=== PATIENT | male | born 1940 | race Caucasian/White ===

== ENCOUNTER 2018-02-26 15:19 | Inpatient (IN) | payer MEDICARE, BC ==
[~2018-02-26] VITALS: Ht 180.3 cm; Wt 108.0 kg
[2018-02-26 18:37] VITALS: BP 131/71; PULSE 69; RESP 20; TEMP 97.9; O2SAT 98
[2018-02-26 20:00] VITALS: BP 127/71; PULSE 66; RESP 18; TEMP 97.5; O2SAT 96
[2018-02-26] MEDS ORDERED: VITACAP7 PO (20:11)
[2018-02-26] MEDS ORDERED: NITR0.4S SL (20:25)
[2018-02-26] MEDS ORDERED: SOTA160T PO (20:25)
[2018-02-26] MEDS ORDERED: CALC1TAB12 PO (20:25)
[2018-02-26] MEDS ORDERED: TRIL135C PO ×2 (20:25→20:43)
[2018-02-26] MEDS ORDERED: FLUT1INH INH (20:25)
[2018-02-26] MEDS ORDERED: AMLO10TA2 PO (20:25)
[2018-02-26] MEDS ORDERED: CYMB60CA PO ×2 (20:25→20:40)
[2018-02-26] MEDS ORDERED: MELA5 PO (20:25)
[2018-02-26] MEDS ORDERED: METF850T PO (20:25)
[2018-02-26] MEDS ORDERED: ALBU0.08 NEB (20:25)
[2018-02-26] MEDS ORDERED: LIPI80TA PO (20:25)
[2018-02-26] MEDS ORDERED: CARV25TA PO (20:25)
[2018-02-26] MEDS ORDERED: PANT40TA3 PO (20:25)
[2018-02-26] MEDS ORDERED: DICL1PAT (20:25)
[2018-02-26] MEDS ORDERED: POTA10TA2 PO (20:28)
[2018-02-26] MEDS ORDERED: APIX5TAB PO (20:28)
[2018-02-26] MEDS ORDERED: ASPI-516 CHEW (20:28)
[2018-02-26] MEDS ORDERED: FURO40TA PO (20:28)
[2018-02-26] MEDS ORDERED: IRBE300T11 PO (20:28)
[2018-02-26] MEDS ORDERED: VANCOMYCIN 1,000 MG/NS 250 ML IV ONE ×2 (21:00)
[2018-02-26] MEDS ORDERED: OMEG100046 PO (21:42)
[2018-02-26] MEDS ORDERED: FOLI800T PO (21:42)
[2018-02-26] MEDS ORDERED: MIRA3350 PO (21:42)
[2018-02-26] MEDS ORDERED: VITA1000 PO (21:42)
[2018-02-26] MEDS: ATORVASTATIN 80 MG TAB PO SCH (22:15)
[2018-02-26] MEDS: APIXABAN 5 MG TABLET PO SCH (22:15)
[2018-02-26] MEDS ORDERED: NITROGLYCERIN 0.4 MG SL 25 TABS/BTL SL PRN (22:15)
[2018-02-26] MEDS: SOTALOL HCL 80 MG TAB PO SCH (22:15)
[2018-02-26] MEDS: CARVEDILOL 12.5 MG TAB PO SCH (22:15)
[2018-02-26] MEDS: MELATONIN 5 MG TAB PO SCH (22:15)
[2018-02-26 22:41] LABS: AUTOMATED NEUTROPHIL # 6.4 TH/MM3 (1.8-7.7); BASOPHIL # 0.1 TH/MM3 (0-0.2); BASOPHIL % 0.8 % (0.0-2.0); EOSINOPHIL # 0.4 TH/MM3 (0-0.4); EOSINOPHIL % 4.1 % (0.0-4.0); HEMATOCRIT 41.7 % (39.0-51.0); LYMPH % 12.2 % (9.0-44.0); LYMPHOCYTE # 1.1 TH/MM3 (1.0-4.8); MEAN CELL VOLUME 83.5 FL (80.0-100.0); MEAN CORPUSCULAR HEMOGLOBIN 28.1 PG (27.0-34.0); MEAN CORPUSCULAR HGB CONC 33.6 % (32.0-36.0); MONO % 9.9 % (0.0-8.0); MONOCYTE # 0.9 TH/MM3 (0-0.9); PLATELET COUNT 207 TH/MM3 (150-450); RED BLOOD COUNT 4.99 MIL/MM3 (4.50-5.90); RED CELL DISTRIBUTION WIDTH 15.3 % (11.6-17.2); WHITE BLOOD COUNT 8.8 TH/MM3 (4.0-11.0)
[2018-02-26 23:03] LABS: ALBUMIN 3.6 GM/DL (3.4-5.0); AST (GOT) 20 U/L (15-37); BICARBONATE 25.5 MEQ/L (21.0-32.0); BLOOD UREA NITROGEN 21 MG/DL (7-18); CALCIUM 8.8 MG/DL (8.5-10.1); CHLORIDE 108 MEQ/L (98-107); CREATININE 1.06 MG/DL (0.60-1.30); GLOMERULAR FILTRATION RATE 68 ML/MIN (>89); GLUCOSE,RANDOM 123 MG/DL (74-106); SODIUM (NA) 143 MEQ/L (136-145)
[2018-02-26 23:04] LABS: ALT (GPT) 18 U/L (12-78)
[2018-02-26 23:06] LABS: ALKALINE PHOSPHATASE 38 U/L (45-117); TOTAL BILIRUBIN ADULT 1.1 MG/DL (0.2-1.0); TOTAL PROTEIN 7.4 GM/DL (6.4-8.2)
[2018-02-27 00:11] VITALS: BP 113/78; PULSE 68; RESP 18; TEMP 98.7; O2SAT 96
[2018-02-27 04:00] VITALS: BP 133/63; PULSE 77; RESP 18; TEMP 97.7; O2SAT 96
[2018-02-27 08:00] VITALS: BP 143/72; PULSE 78; RESP 18; TEMP 98.2; O2SAT 95
[2018-02-27] MEDS: FENOFIBRATE 145 MG TAB PO SCH (08:15)
[2018-02-27] MEDS: metFORMIN HCL 850 MG TAB PO SCH ×2 (08:15→17:58)
[2018-02-27] MEDS: CARVEDILOL 12.5 MG TAB PO SCH ×2 (08:18→21:14)
[2018-02-27] MEDS: SOTALOL HCL 80 MG TAB PO SCH ×2 (08:18→21:12)
[2018-02-27] MEDS: LOSARTAN 50 MG TAB PO SCH (08:19)
[2018-02-27] MEDS: ASPIRIN 81 MG CHEW TAB CHEW SCH (08:19)
[2018-02-27] MEDS: FUROSEMIDE 40 MG TAB PO SCH (08:20)
[2018-02-27] MEDS: POTASSIUM CHLORIDE 10 MEQ CONTROLLED RELEASE TAB PO SCH (08:20)
[2018-02-27] MEDS: APIXABAN 5 MG TABLET PO SCH ×2 (08:21→21:13)
[2018-02-27] MEDS: PANTOPRAZOLE SOD 40 MG DELAYED RELEASE TAB PO SCH (08:21)
[2018-02-27] MEDS: POLYETHYLENE GLYCOL 17 GM PKG PO SCH (08:23)
--- NOTE | 2018-02-27 08:58 | HHI.PR ---
Subjective Remarks Patient received first dose of vancomycin late last night. Left leg dressing fell off in the middle of the night. Was replaced this morning. Denies pain in the left lower extremity. Denies any chest pain, shortness of breath, nausea or vomiting. Ambulating in the room with his cane. Current Medications Medications (Trade) Dose Ordered Sig/Kely Route Start Time Stop Time Status Last Admin (Norvasc) 10 mg DAILY PO 02/27/18 09:00 (Eliquis) 5 mg BID PO 02/26/18 22:15 02/27/18 08:21 (Aspirin Chew) 81 mg DAILY CHEW 02/27/18 09:00 02/27/18 08:19 (Lipitor) 80 mg HS PO 02/26/18 22:15 (Coreg) 25 mg BID PO 02/26/18 22:15 02/27/18 08:18 (Cymbalta Dr) 60 mg DAILY PO 02/27/18 09:00 (Breo Ellipta 100-25 Inh) 1 puff DAILY INH 02/27/18 09:00 (Lasix) 40 mg DAILY PO 02/27/18 09:00 02/27/18 08:20 (Melatonin) 10 mg HS PO 02/26/18 22:15 (Glucophage) 850 mg BIDPC PO 02/27/18 09:00 02/27/18 08:15 (Nitrostat Sl) 0.4 mg STAT PRN SL 02/26/18 22:15 (Protonix) 40 mg DAILY PO 02/27/18 09:00 02/27/18 08:21 (Miralax) 17 gm DAILY PO 02/27/18 09:00 02/27/18 08:23 (KCl) 10 meq DAILY PO 02/27/18 09:00 02/27/18 08:20 (Tricor) 145 mg DAILY PO 02/27/18 09:00 02/27/18 08:15 (Cozaar) 100 mg DAILY PO 02/27/18 09:00 02/27/18 08:19 (Betapace) 160 mg BID PO 02/26/18 22:15 02/27/18 08:18 Objective Vital Signs Date Time Temp Pulse Resp B/P (MAP) Pulse Ox O2 Delivery O2 Flow Rate FiO2 02/27/18 04:00 97.7 77 18 133/63 (86) 96 02/27/18 00:11 98.7 68 18 113/78 (90) 96 02/26/18 20:00 97.5 66 18 127/71 (89) 96 02/26/18 18:37 97.9 69 20 131/71 (91) 98 I/O 02/26/18 02/26/18 02/26/18 02/27/18 02/27/18 02/27/18 07:00 15:00 23:00 07:00 15:00 23:00 Intake Total 250 ml Balance 250 ml Intake IV Total 250 ml # Voids 2 3 Cardiovascular: IRRR Lungs: Clear to auscultation with mildly reduced air exchange Abdomen: Obese, soft and nontender. Further palpation is not possible due to obesity. Bowel sounds present Left lower extremity: 2+ edema of the lower leg with diffuse pale erythema anteriorly. Proximal lateral lower leg reveals a 1.5 x 3.5 cm stage II open wound. There is a 3 x 6 cm area of surrounding desquamation and deep erythema. Right lower extremity reveals no edema. No calf tenderness or Homans sign bilaterally Result Diagram: 02/26/18204602/26/182046 Assessment and Plan Problem List: (1) Cellulitis of left lower limb ICD Codes: L03.116 - Cellulitis of left lower limb Status: Acute Plan: The patient failed outpatient treatment with oral antibiotics and local wound care. He has received his first dose of vancomycin. Awaiting infectious disease consult for assistance with choice of antibiotics. Continue with local wound care. (2) ASHD (arteriosclerotic heart disease) ICD Codes: I25.10 - Atherosclerotic heart disease of [place] coronary artery without angina pectoris Status: Chronic Plan: Patient continues with current medication. He is asymptomatic for any recurrent coronary ischemia (3) History of ventricular tachycardia ICD Codes: Z86.79 - Personal history of other diseases of the circulatory system Status: Chronic Plan: The patient has an AICD in place. No evidence of any recurrent ventricular tachycardia. (4) Atrial fibrillation ICD Codes: I48.91 - Unspecified atrial fibrillation Plan: Ventricular rate is well controlled. He continues to take Eliquis for prophylaxis against embolism. No bleeding complications from the Eliquis. (5) Type 2 diabetes mellitus ICD Codes: E11.9 - Type 2 diabetes mellitus without complications Status: Chronic Plan: Continue with Metformin. Patient has had good glycemic control. He does have peripheral neuropathy and ambulates with a cane. (6) Hyperlipidemia ICD Codes: E78.5 - Hyperlipidemia, unspecified Status: Chronic Plan: Continue with current medication. (7) COPD (chronic obstructive pulmonary disease) ICD Codes: J44.9 - Chronic obstructive pulmonary disease, unspecified Status: Chronic Plan: The patient continues with Breo ellipta. Respiratory status stable (8) Hypertension ICD Codes: I10 - Essential (primary) hypertension Status: Chronic Plan: Blood pressure under adequate control with current medications (9) Anxiety ICD Codes: F41.9 - Anxiety disorder, unspecified Status: Chronic Plan: The patient has been on duloxetine for several years with good control of his anxiety. Will follow. Problem Qualifiers (1) Atrial fibrillation: Qualified Codes: I48.2 - Chronic atrial fibrillation (2) Type 2 diabetes mellitus: Qualified Codes: E11.42 - Type 2 diabetes mellitus with diabetic polyneuropathy (3) Hyperlipidemia: Qualified Codes: E78.2 - Mixed hyperlipidemia (4) COPD (chronic obstructive pulmonary disease): Qualified Codes: J44.9 - Chronic obstructive pulmonary disease, unspecified (5) Hypertension: Qualified Codes: I10 - Essential (primary) hypertension Anthony Fenton MD Feb 27, 2018 08:58
[2018-02-27] MEDS ORDERED: DULoxetine HCl DR 60 MG CAP PO SCH (09:00)
[2018-02-27] MEDS ORDERED: Vancomycin Consult Pharmacy 1 EA OTHER SCH (09:00)
[2018-02-27] MEDS: TIOTROPIUM BROMIDE 18 MCG INH INH SCH (09:45)
--- NOTE | 2018-02-27 10:25 | MH ---
cc: Anthony Fenton MD DATE OF ADMISSION: 02/26/2018 ADMITTING DIAGNOSIS: Open wound with cellulitis, left lower extremity. HISTORY OF PRESENT ILLNESS: This 78-year-old white male well known to the undersigned physician. He presented to the undersigned physician's office approximately 2 weeks prior to admission with a wound on the left proximal lateral lower leg. He states that it occurred when he struck his leg on his walker at home, he initially just applied some gauze and did not perform any regular wound care. He had been to his oracle drm consultant for foot care and the oracle drm consultant noticed swelling in the left lower extremity. When evaluated further, this wound was discovered and the oracle drm consultant was very concerned and asked that I see the patient and possibly refer this patient for wound care. The patient has been receiving wound care in the undersigned physician's office while awaiting an appointment with the [facility], which was scheduled for tomorrow. The patient has been receiving doxycycline 100 mg twice a day for antibiotics and has been treated with wound care using alginate and a sterile dressing, which has been changed every 3 days. Initially, there was improvement in the wound, but then 3 days prior to admission, the patient was seen in the undersigned physician's office and there was increasing erythema around the wound. There was concern for worsening infection. The patient was prescribed Zyvox 600 mg twice daily, the prescription for which was sent to the patient's local pharmacy; however, the pharmacy reported to the patient that they were unable to obtain the antibiotic due to national back order and therefore they did not fill the prescription nor did they contact the undersigned physician. On the day of admission, the patient presented to the undersigned physician's office. The wound was noted to have quite a bit of serosanguineous discharge and a foul odor. There was increasing erythema extending down the left lower leg and there was marked edema of the left lower extremity. It was felt that the patient had a worsening infection which had failed outpatient treatment and he would require IV antibiotics through inpatient treatment. PAST MEDICAL HISTORY: Significant for osteopenia, diverticulosis, atherosclerotic heart disease, status post coronary stent placement, history of ventricular tachycardia with cardiac arrest in 2011. He is status post AICD placement. He has a cardiomyopathy with a left ventricular ejection fraction of 37%. He has mild left carotid stenosis, hyperlipidemia, lumbar disk disease, GERD, COPD, anxiety disorder, hypertension, allergic rhinitis, history of colonic polyps based on a colonoscopy in 2017 and he has peripheral neuropathy. The patient also type 2 diabetes, which is treated with oral medication. He has chronic atrial fibrillation, which was diagnosed in 2018. ALLERGIES: HE HAS NO KNOWN DRUG ALLERGIES. PAST SURGICAL HISTORY: Positive for AICD pacemaker placement in 2011, coronary stent placement and bilateral cataract removal with lens implants. CURRENT MEDICATIONS: 1. B complex 1 tablet daily. 2. Calcium with vitamin D 500 mg twice a day. 3. Fish oil 1000 mg twice daily. 4. Pantoprazole 40 mg daily. 5. Vitamin D 5000 international units daily. 6. Amlodipine 10 mg daily. 7. Carvedilol 25 mg twice daily. 8. Duloxetine 60 mg daily. 9. Lipitor 80 mg daily. 10. Sotalol 160 mg twice daily. 11. Trilipix 135 mg daily. 12. Flector patch 1.3% apply 1 patch to the skin twice a day. 13. Nitroglycerin 0.4 mg 1 tablet under the tongue every 5 minutes x 3 p.r.n. chest pain. 14. Melatonin 5 mg 2 tablets at bedtime as needed for insomnia. 15. Folic acid 1 mg daily. 16. Albuterol. 17. Ipratropium nebulizer solution 1 unit dose 3 times a day as needed. 18. Breo Ellipta 100/25 mcg per inhalation 1 inhalation daily, increase Ellipta 62.5 mcg per inhalation 1 inhalation daily. 19. Albuterol sulfate inhaler 2 puffs every 4 hours as needed for wheezing. 20. Metformin 850 mg twice daily. 21. Aspirin 81 mg daily. 22. Eliquis 5 mg twice daily. 23. MiraLax 17 gm in 8 ounces of liquid daily. 24. Furosemide 40 mg daily. 25. Potassium chloride ER 10 mEq daily. 26. Avapro 300 mg daily FAMILY HISTORY: Noncontributory. SOCIAL HISTORY: He is single. 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 He spends part of the year in [place] and part of the year in [place]. He smoked a pipe for many years, but quit in 1999. He does consume alcohol on a social basis. REVIEW OF SYSTEMS: Negative for any chest pain, shortness of breath at rest. He has chronic dyspnea on exertion. He has had no palpitations, lightheadedness, dizziness, nausea, vomiting, GERD symptoms, diarrhea, constipation, abdominal pain, melena, hematochezia, epistaxis, visual changes, lightheadedness, dizziness. He has chronic numbness in the lower extremities. He ambulates with a cane. The patient has had some urinary frequency and urgency, but no incontinence or dysuria. He denies any hematuria. The patient also denies any definite fever, chills or night sweats. PHYSICAL EXAM: VITAL SIGNS: The patient's blood pressure was 132/62 with a heart rate of 80, respirations were 16, temperature 98.1 degrees Fahrenheit, height 71 inches. GENERAL: This is a morbidly obese, elderly, white male, sitting on the exam table in no acute distress. HEENT: Pupils equal, round, reactive to light. Extraocular movements are intact. Sclerae are anicteric. Conjunctivae pink. Bilateral lens implants in place. Mouth and throat reveal moist mucous membranes. No erythema or exudates. Dentition is good. NECK: Supple without lymphadenopathy, JVD, bruits or thyromegaly. CARDIOVASCULAR: Shows an irregular rate and rhythm without murmur, rubs or gallops. LUNGS: Reveal Mildly diminished air exchange, but no wheezes, rhonchi or rales. ABDOMEN: Morbidly obese, soft, nontender. Bowel sounds present. Further palpation not possible due to the obesity. No CVAT. GENITOURINARY AND RECTAL: Deferred. EXTREMITIES: The right lower extremities reveal no edema, no calf tenderness. No Kathie's sign. There are 2+ distal pulses. Left lower extremity reveals 2+ edema of the lower leg and ankle. There is no calf tenderness or Kathie's sign. The proximal lateral lower leg reveals a V-shaped laceration measuring approximately 2.5 cm on each arm and the width is approximately 1.5 cm. There is some exudate present in the base of the wound. There is desquamation with marked erythema measuring 3 x 6 cm around the wound. There is pale erythema extending down the anterior leg to the distal lower leg. There are no other open areas. NEUROLOGIC: The patient is awake, alert, and oriented x 3. Speech intact. Cranial nerves intact. No short-term memory or cognitive deficits. Gait is flat footed with a short stride length utilizing a cane. LABORATORY DATA: CBC and CMP are pending at this time. IMPRESSION AND PLAN: 1. This 78-year-old white male presents with a worsening cellulitis of the left lower extremity due to an open wound. The patient has been on oral antibiotics and has failed the course, therefore, he would benefit from an inpatient treatment. He is at high risk for complications from his cellulitis due to his diabetes and neuropathy as well as his other multiple comorbidities. I am going to admit him to a medical surgical bed. Place him on IV vancomycin initially. We will consult infectious disease for assistance with antibiotic choice. We will check baseline renal function and monitor renal function closely. I have asked pharmacy to assist with dosing of the vancomycin. We will continue with local wound care with alginate dressing changed every other day. We will have the patient elevate leg as much as possible. 2. History of atherosclerotic heart disease with history of ventricular tachycardia. The patient has been asymptomatic for any recurrent coronary ischemia or arrhythmia for years. He will continue with the usual medications. 3. Diabetes. The patient has had good glycemic control with metformin. We will continue with current medication. 4. Atrial fibrillation. The patient's ventricular rate is well controlled. Continue with Eliquis for prophylaxis against embolism. 5. History of anxiety disorder. Continue with Cymbalta. Symptoms under adequate control. 6. History of a cardiomyopathy. The patient has increasing edema in the left lower extremity due to this cellulitis. Otherwise, he appears to be compensated. Continue with current medication regimen. 7. Hyperlipidemia. Continue with Lipitor and Trilipix. Lipid levels were checked in the recent months and were within acceptable range. LFTs have also been within normal range. I have explained the plan of care with the patient who expressed understanding and agreement. Anthony Fenton MD JRM/FARHAD , 09:43 AM , 10:24 AM
[2018-02-27] MEDS: FLUTICASONE 100 MCG/VILANTEROL 25 MCG INHALER INH SCH (11:25)
[2018-02-27 12:00] VITALS: BP 137/68; PULSE 71; RESP 18; TEMP 98; O2SAT 98
--- NOTE | 2018-02-27 13:32 | PD.CONS ---
History of Present Illness Service Infectious Disease Consult Requested By Dr Mela Fenton Reason for Consult Evaluate patient with cellulitis and wound left leg Primary Care Physician Unknown Diagnoses: History of Present Illness Patient seen and examined. Records reviewed. Patient is a 78-year-old male, with history of diabetes, presented to the hospital for further evaluation of increased swelling, and worsening redness in his left lower extremity. About 2 weeks ago patient sustained a wound on his left leg after he fell while he was using his walker at home. Patient did not really do any significant wound care except put a gauze, and when he went to his regular appointment with the director of athletics, which was mostly for trimming of his toenails, he was noted to have the redness and the swelling so he was advised to go to his primary care doctor. He was put on wound care which was being changed every 3 days, and he was put on doxycycline. He was being seen regularly and his primary care physician has been doing the dressing changes in the office. About 4 days prior to admission he was seen in follow-up, and his antibiotic was changed to Zyvox. Patient apparently could not get the Zyvox from his pharmacy because he was backorder, and he finished the remaining doxycycline that he has. On the day that he was supposed to follow-up which would be the day of admission, the patient noted that he has more redness in his left leg. His physician also noted some smell, and it was decided to bring him to the hospital for further evaluation and treatment. He denies any fever chills or sweats. He has not had any respiratory complaints, GI or any urinary complaints. Since admission, patient has not been febrile. His WBC is normal. He has been getting IV vancomycin. Infectious disease consultation has been requested to evaluate the patient. Review of Systems Constitutional: DENIES: Fever, Chills, Night Sweats Eyes: DENIES: Eye pain Ears, nose, mouth, throat: DENIES: Oral lesions, Throat pain, Ear Pain, Sinus Pain Respiratory: DENIES: Cough, Sputum production, Shortness of breath Cardiovascular: COMPLAINS OF: Lower Extremity Edema, DENIES: Chest pain, Syncope Gastrointestinal: DENIES: Abdominal pain, Diarrhea, Nausea, Vomiting, Difficulty Swallowing Genitourinary: DENIES: Urgency, Dysuria, Nocturia Musculoskeletal: COMPLAINS OF: Back pain Integumentary: DENIES: Rash Hematologic/lymphatic: DENIES: Lymphadenopathy Neurologic: COMPLAINS OF: Paresthesias, DENIES: Localized weakness Psychiatric: DENIES: Hallucinations Past Family Social History Allergies: Coded Allergies: No Known Allergies (Unverified , 02/26/18) Past Medical History Diabetes Atherosclerotic heart disease, CAD Cardiomyopathy Diverticulosis Hyperlipidemia Lumbar disc disease GERD COPD Anxiety Hypertension Allergic rhinitis Colon polyps Chronic A. fib Ventricular tachycardia with cardiac arrest 2011 Left carotid stenosis Neuropathy Past Surgical History AICD placement Previous colonoscopy Active Ordered Medications Current Medications Medications (Trade) Dose Ordered Sig/Kley Route Start Time Stop Time Status Last Admin (Eliquis) 5 mg BID PO 02/26/18 22:15 02/27/18 08:21 (Aspirin Chew) 81 mg DAILY CHEW 02/27/18 09:00 02/27/18 08:19 (Lipitor) 80 mg HS PO 02/26/18 22:15 (Coreg) 25 mg BID PO 02/26/18 22:15 02/27/18 08:18 (Breo Ellipta 100-25 Inh) 1 puff DAILY INH 02/27/18 09:00 02/27/18 11:25 (Lasix) 40 mg DAILY PO 02/27/18 09:00 02/27/18 08:20 (Melatonin) 10 mg HS PO 02/26/18 22:15 (Glucophage) 850 mg BIDPC PO 02/27/18 09:00 02/27/18 08:15 (Nitrostat Sl) 0.4 mg STAT PRN SL 02/26/18 22:15 (Protonix) 40 mg DAILY PO 02/27/18 09:00 02/27/18 08:21 (Miralax) 17 gm DAILY PO 02/27/18 09:00 02/27/18 08:23 (KCl) 10 meq DAILY PO 02/27/18 09:00 02/27/18 08:20 (Tricor) 145 mg DAILY PO 02/27/18 09:00 02/27/18 08:15 (Cozaar) 100 mg DAILY PO 02/27/18 09:00 02/27/18 08:19 (Betapace) 160 mg BID PO 02/26/18 22:15 02/27/18 08:18 Pharmacy Profile Note 0 ml @ 0 mls/hr UNSCH OTHER 02/27/18 09:00 (Cymbalta Dr) 60 mg HS PO 02/27/18 21:00 (Norvasc) 10 mg HS PO 02/27/18 21:00 (Spiriva Inh) 18 mcg DAILY INH 02/27/18 09:45 Vancomycin HCl 2000 mg/Sodium Chloride 520 ml @ 250 mls/hr Q24H IV 02/27/18 15:00 Miscellaneous Information SPECIFIC LAB TO BE [facility]... 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 SKIN: Warm and dry. No generalized rash, no ecchymoses and no evidence of embolic lesions. HEAD: Atraumatic. Normocephalic. No temporal wasting, or tenderness. EYES: [place] conjunctiva. No petechia or hemorrhage. Pupils equal, round and reactive to light. Extraocular movements full and intact. No scleral icterus. No injection or drainage. EARS, NOSE AND THROAT: Nose without bleeding or purulent nasal discharge. No sinus tenderness. Mucous membranes pink and moist. No oral lesions noted. No exudate. No oral thrush. NECK: Trachea midline. Supple and not tender, no meningeal signs CARDIOVASCULAR: Regular rate and rhythm. No murmurs, rubs or gallops heard RESPIRATORY: Clear to auscultation. Breath sounds equal bilaterally. No rales , wheezing or rhonchi ABDOMEN: Soft, non-tender, nondistended. Bowel sounds present and normoactive. No guarding. No rebound. No organomegaly. EXTREMITIES: No clubbing, cyanosis. His LLE is larger compared to his RLE. There is a wound in lateral aspect of his L leg, proximally that is curved, with some yellow exudate at the base. There is periwound erythema as well as ecchymosis. There is dependent erythema whole L leg - resolves when I elevate his LLE. No calf tenderness. Well perfused and warm. NEUROLOGICAL: Awake and alert. Cranial nerves grossly intact. Motor grossly within normal limits. PSYCHIATRIC: Normal affect, calm and cooperative. LINE: No evidence of infection Laboratory Laboratory Tests Test 02/26/18 20:47 White Blood Count 8.8 Red Blood Count 4.99 Hemoglobin 14.0 Hematocrit 41.7 Mean Corpuscular Volume 83.5 Mean Corpuscular Hemoglobin 28.1 Mean Corpuscular Hemoglobin Concent 33.6 Red Cell Distribution Width 15.3 Platelet Count 207 Mean Platelet Volume 9.0 Neutrophils (%) (Auto) 73.0 Lymphocytes (%) (Auto) 12.2 Monocytes (%) (Auto) 9.9 Eosinophils (%) (Auto) 4.1 Basophils (%) (Auto) 0.8 Neutrophils # (Auto) 6.4 Lymphocytes # (Auto) 1.1 Monocytes # (Auto) 0.9 Eosinophils # (Auto) 0.4 Basophils # (Auto) 0.1 CBC Comment DIFF FINAL Differential Comment Blood Urea Nitrogen 21 Creatinine 1.06 Random Glucose 123 Total Protein 7.4 Albumin 3.6 Calcium Level 8.8 Alkaline Phosphatase 38 Aspartate Amino Transf (AST/SGOT) 20 Alanine Aminotransferase (ALT/SGPT) 18 Total Bilirubin 1.1 Sodium Level 143 Potassium Level 3.9 Chloride Level 108 Carbon Dioxide Level 25.5 Anion Gap 10 Estimat Glomerular Filtration Rate 68 Result Diagram: 02/26/18204602/26/182046 Assessment and Plan Assessment and Plan IMPRESSION Ulcer L leg with cellulitis Cellulitis LLE RECOMMENDATION Culture wound Edema control - leg elevation and try TRENT stocking Continue vancomycin for now Monitor progress I will follow along with you Thank you for this consultation Discussed Condition With Explained plan to the patient Kayla Morales MD Feb 27, 2018 13:32
[2018-02-27] MEDS: VANCOMYCIN INJ 2,000 MG in SODIUM CHLORID 0.9% 500 ML INJ 500 ML IV SCH (14:59)
[2018-02-27 16:00] VITALS: BP 146/81; PULSE 72; RESP 18; TEMP 98.6; O2SAT 97
[2018-02-27 20:00] VITALS: BP 135/63; PULSE 60; RESP 16; TEMP 98.3; O2SAT 100
[2018-02-27] MEDS: DULoxetine HCl DR 60 MG CAP PO SCH (21:12)
[2018-02-27] MEDS: ATORVASTATIN 80 MG TAB PO SCH (21:12)
[2018-02-27] MEDS ORDERED: VANCOMYCIN INJ 1,000 MG in SODIUM CHLOR 0.9% 250 ML INJ 250 ML IV SCH (22:00)
[2018-02-27] MEDS: MELATONIN 5 MG TAB PO SCH (22:18)
[2018-02-28] VITALS: BP 118/58; PULSE 76; RESP 16; RESP 18; TEMP 98.1; O2SAT 95
[2018-02-28 04:00] VITALS: BP 120/62; PULSE 80; RESP 16; TEMP 97.8; O2SAT 100
[2018-02-28 08:18] VITALS: BP 141/81; PULSE 80; RESP 20; TEMP 97.7; O2SAT 93
[2018-02-28] MEDS: POTASSIUM CHLORIDE 10 MEQ CONTROLLED RELEASE TAB PO SCH (08:50)
[2018-02-28] MEDS: PANTOPRAZOLE SOD 40 MG DELAYED RELEASE TAB PO SCH (08:50)
[2018-02-28] MEDS: LOSARTAN 50 MG TAB PO SCH (08:50)
[2018-02-28] MEDS: FUROSEMIDE 40 MG TAB PO SCH (08:50)
[2018-02-28] MEDS: FENOFIBRATE 145 MG TAB PO SCH (08:51)
[2018-02-28] MEDS: SOTALOL HCL 80 MG TAB PO SCH ×2 (08:51→22:02)
[2018-02-28] MEDS: CARVEDILOL 12.5 MG TAB PO SCH ×2 (08:51→22:02)
[2018-02-28] MEDS: ASPIRIN 81 MG CHEW TAB CHEW SCH (08:51)
[2018-02-28] MEDS: APIXABAN 5 MG TABLET PO SCH ×2 (08:51→22:02)
[2018-02-28] MEDS: POLYETHYLENE GLYCOL 17 GM PKG PO SCH (08:52)
[2018-02-28] MEDS: TIOTROPIUM BROMIDE 18 MCG INH INH SCH (08:53)
[2018-02-28] MEDS: FLUTICASONE 100 MCG/VILANTEROL 25 MCG INHALER INH SCH (08:54)
[2018-02-28] MEDS: metFORMIN HCL 850 MG TAB PO SCH ×2 (09:04→17:45)
[2018-02-28 09:09] LABS: AUTOMATED NEUTROPHIL # 3.6 TH/MM3 (1.8-7.7); BASOPHIL # 0.1 TH/MM3 (0-0.2); EOSINOPHIL # 0.2 TH/MM3 (0-0.4); HEMATOCRIT 36.9 % (39.0-51.0); HEMOGLOBIN 12.1 GM/DL (13.0-17.0); LYMPH % 17.7 % (9.0-44.0); LYMPHOCYTE # 0.9 TH/MM3 (1.0-4.8); MEAN CELL VOLUME 83.3 FL (80.0-100.0); MEAN CORPUSCULAR HEMOGLOBIN 27.4 PG (27.0-34.0); MEAN CORPUSCULAR HGB CONC 32.8 % (32.0-36.0); MEAN PLATELET VOLUME 8.7 FL (7.0-11.0); MONO % 11.1 % (0.0-8.0); MONOCYTE # 0.6 TH/MM3 (0-0.9); NEUT % 66.2 % (16.0-70.0); PLATELET COUNT 165 TH/MM3 (150-450); RED BLOOD COUNT 4.43 MIL/MM3 (4.50-5.90); RED CELL DISTRIBUTION WIDTH 15.1 % (11.6-17.2); WHITE BLOOD COUNT 5.4 TH/MM3 (4.0-11.0)
--- NOTE | 2018-02-28 09:15 | HHI.PR ---
Subjective Remarks Patient reports some mild discomfort in the left proximal lateral lower leg lateral to the wound. He is afebrile. He is ambulating around the room with his cane. He remains afebrile. Vital signs are within acceptable range. Appetite good. Current Medications Medications (Trade) Dose Ordered Sig/Kely Route Start Time Stop Time Status Last Admin (Eliquis) 5 mg BID PO 02/26/18 22:15 02/28/18 08:51 (Aspirin Chew) 81 mg DAILY CHEW 02/27/18 09:00 02/28/18 08:51 (Lipitor) 80 mg HS PO 02/26/18 22:15 02/27/18 21:12 (Coreg) 25 mg BID PO 02/26/18 22:15 02/28/18 08:51 (Breo Ellipta 100-25 Inh) 1 puff DAILY INH 02/27/18 09:00 02/28/18 08:54 (Lasix) 40 mg DAILY PO 02/27/18 09:00 02/28/18 08:50 (Melatonin) 10 mg HS PO 02/26/18 22:15 02/27/18 22:18 (Glucophage) 850 mg BIDPC PO 02/27/18 09:00 02/28/18 09:04 (Nitrostat Sl) 0.4 mg STAT PRN SL 02/26/18 22:15 (Protonix) 40 mg DAILY PO 02/27/18 09:00 02/28/18 08:50 (Miralax) 17 gm DAILY PO 02/27/18 09:00 02/28/18 08:52 (KCl) 10 meq DAILY PO 02/27/18 09:00 02/28/18 08:50 (Tricor) 145 mg DAILY PO 02/27/18 09:00 02/28/18 08:51 (Cozaar) 100 mg DAILY PO 02/27/18 09:00 02/28/18 08:50 (Betapace) 160 mg BID PO 02/26/18 22:15 02/28/18 08:51 Pharmacy Profile Note 0 ml @ 0 mls/hr UNSCH OTHER 02/27/18 09:00 (Cymbalta Dr) 60 mg HS PO 02/27/18 21:00 02/27/18 21:12 (Norvasc) 10 mg HS PO 02/27/18 21:00 02/27/18 21:14 (Spiriva Inh) 18 mcg DAILY INH 02/27/18 09:45 02/28/18 08:53 Vancomycin HCl 2000 mg/Sodium Chloride 520 ml @ 250 mls/hr Q24H IV 02/27/18 15:00 02/27/18 14:59 Miscellaneous Information SPECIFIC LAB TO BE VERONICA... ONCE ONCE .XX 03/02/18 14:45 03/02/18 14:46 Objective Vital Signs Date Time Temp Pulse Resp B/P (MAP) Pulse Ox O2 Delivery O2 Flow Rate FiO2 02/28/18 08:18 97.7 80 20 141/81 (101) 93 02/28/18 04:00 97.8 80 16 120/62 (81) 100 02/28/18 00:00 98.1 76 16 118/58 (78) 95 02/28/18 00:00 98.1 76 18 118/58 (78) 95 02/27/18 20:00 98.3 60 16 135/63 (87) 100 02/27/18 16:00 98.6 72 18 146/81 (102) 97 02/27/18 12:00 98.0 71 18 137/68 (91) 98 I/O 02/27/18 02/27/18 02/27/18 02/28/18 02/28/18 02/28/18 07:00 15:00 23:00 07:00 15:00 23:00 Intake Total 250 ml 480 ml Balance 250 ml 480 ml Intake Oral 480 ml IV Total 250 ml # Voids 3 3 # Bowel Movements 1 Left lower extremity reveals decreased erythema along the anterior surface of the length of the lower leg. 1+ edema. Desquamation around wound has improved. Decreasing deep erythema around wound. Small exudate present to the base of the wound but otherwise remains unchanged Result Diagram: 02/28/18 0747 02/26/182046 Assessment and Plan Problem List: (1) Cellulitis of left lower limb ICD Codes: L03.116 - Cellulitis of left lower limb Status: Acute Plan: Day 3 of vancomycin. Wound culture pending. Appreciate infectious disease consult. Continue with local wound care. Dressing does not stay in place more than 24 hours so we will change order for dressing change daily. (2) ASHD (arteriosclerotic heart disease) ICD Codes: I25.10 - Atherosclerotic heart disease of [place] coronary artery without angina pectoris Status: Chronic Plan: Patient continues with current medication. He is asymptomatic for any recurrent coronary ischemia (3) History of ventricular tachycardia ICD Codes: Z86.79 - Personal history of other diseases of the circulatory system Status: Chronic Plan: The patient has an AICD in place. No evidence of any recurrent ventricular tachycardia. (4) Atrial fibrillation ICD Codes: I48.91 - Unspecified atrial fibrillation Plan: Ventricular rate is well controlled. He continues to take Eliquis for prophylaxis against embolism. No bleeding complications from the Eliquis. (5) Type 2 diabetes mellitus ICD Codes: E11.9 - Type 2 diabetes mellitus without complications Status: Chronic Plan: Continue with Metformin. Patient has had good glycemic control. He does have peripheral neuropathy and ambulates with a cane. (6) Hyperlipidemia ICD Codes: E78.5 - Hyperlipidemia, unspecified Status: Chronic Plan: Continue with current medication. (7) COPD (chronic obstructive pulmonary disease) ICD Codes: J44.9 - Chronic obstructive pulmonary disease, unspecified Status: Chronic Plan: The patient continues with Breo ellipta. Respiratory status stable (8) Hypertension ICD Codes: I10 - Essential (primary) hypertension Status: Chronic Plan: Blood pressure under adequate control with current medications (9) Anxiety ICD Codes: F41.9 - Anxiety disorder, unspecified Status: Chronic Plan: The patient has been on duloxetine for several years with good control of his anxiety. Will follow. Discharge Planning I discussed with the patient that based on infectious disease recommendations, he will either be discharged home with oral antibiotics or with IV antibiotic therapy. He will need home health nursing for wound care. Will await infectious disease recommendations and order home health at that time. Problem Qualifiers (1) Atrial fibrillation: Qualified Codes: I48.2 - Chronic atrial fibrillation (2) Type 2 diabetes mellitus: Qualified Codes: E11.42 - Type 2 diabetes mellitus with diabetic polyneuropathy (3) Hyperlipidemia: Qualified Codes: E78.2 - Mixed hyperlipidemia (4) COPD (chronic obstructive pulmonary disease): Qualified Codes: J44.9 - Chronic obstructive pulmonary disease, unspecified (5) Hypertension: Qualified Codes: I10 - Essential (primary) hypertension Anthony Fenton MD Feb 28, 2018 09:15
[2018-02-28 12:00] VITALS: BP 97/52; PULSE 62; RESP 20; TEMP 97.5; O2SAT 95
--- NOTE | 2018-02-28 12:35 | HHI.IDPN ---
Subjective Subjective Remarks Patient is a 78-year-old male, with history of diabetes, presented to the hospital for further evaluation of increased swelling, and worsening redness in his left lower extremity. About 2 weeks ago patient sustained a wound on his left leg after he fell while he was using his walker at home. Patient did not really do any significant wound care except put a gauze, and when he went to his regular appointment with the unloader operator, which was mostly for trimming of his toenails, he was noted to have the redness and the swelling so he was advised to go to his primary care doctor. He was put on wound care which was being changed every 3 days, and he was put on doxycycline. He was being seen regularly and his primary care physician has been doing the dressing changes in the office. About 4 days prior to admission he was seen in follow-up, and his antibiotic was changed to Zyvox. Patient apparently could not get the Zyvox from his pharmacy because he was backorder, and he finished the remaining doxycycline that he has. On the day that he was supposed to follow-up which would be the day of admission, the patient noted that he has more redness in his left leg. His physician also noted some smell, and it was decided to bring him to the hospital for further evaluation and treatment. He denies any fever chills or sweats. He has not had any respiratory complaints, GI or any urinary complaints. Since admission, patient has not been febrile. His WBC is normal. He has been getting IV vancomycin. Infectious disease consultation has been requested to evaluate the patient. Notes reviewed Temps ok No new complaints Wound C/S with GNR, poss PSAE Antibiotics Vancomycin Current Medications Medications (Trade) Dose Ordered Sig/Kely Route Start Time Stop Time Status Last Admin (Eliquis) 5 mg BID PO 02/26/18 22:15 02/28/18 08:51 (Aspirin Chew) 81 mg DAILY CHEW 02/27/18 09:00 02/28/18 08:51 (Lipitor) 80 mg HS PO 02/26/18 22:15 02/27/18 21:12 (Coreg) 25 mg BID PO 02/26/18 22:15 02/28/18 08:51 (Breo Ellipta 100-25 Inh) 1 puff DAILY INH 02/27/18 09:00 02/28/18 08:54 (Lasix) 40 mg DAILY PO 02/27/18 09:00 02/28/18 08:50 (Melatonin) 10 mg HS PO 02/26/18 22:15 02/27/18 22:18 (Glucophage) 850 mg BIDPC PO 02/27/18 09:00 02/28/18 09:04 (Nitrostat Sl) 0.4 mg STAT PRN SL 02/26/18 22:15 (Protonix) 40 mg DAILY PO 02/27/18 09:00 02/28/18 08:50 (Miralax) 17 gm DAILY PO 02/27/18 09:00 02/28/18 08:52 (KCl) 10 meq DAILY PO 02/27/18 09:00 02/28/18 08:50 (Tricor) 145 mg DAILY PO 02/27/18 09:00 02/28/18 08:51 (Cozaar) 100 mg DAILY PO 02/27/18 09:00 02/28/18 08:50 (Betapace) 160 mg BID PO 02/26/18 22:15 02/28/18 08:51 Pharmacy Profile Note 0 ml @ 0 mls/hr UNSCH OTHER 02/27/18 09:00 (Cymbalta Dr) 60 mg HS PO 02/27/18 21:00 02/27/18 21:12 (Norvasc) 10 mg HS PO 02/27/18 21:00 02/27/18 21:14 (Spiriva Inh) 18 mcg DAILY INH 02/27/18 09:45 02/28/18 08:53 Vancomycin HCl 2000 mg/Sodium Chloride 520 ml @ 250 mls/hr Q24H IV 02/27/18 15:00 02/27/18 14:59 Miscellaneous Information SPECIFIC LAB TO BE VERONICA... ONCE ONCE .XX 03/02/18 14:45 03/02/18 14:46 (Cipro) 750 mg Q12HR PO 02/28/18 12:30 UNV Lines PIV with no evidence of infection Past Medical History Diabetes Atherosclerotic heart disease, CAD Cardiomyopathy Diverticulosis Hyperlipidemia Lumbar disc disease GERD COPD Anxiety Hypertension Allergic rhinitis Colon polyps Chronic A. fib Ventricular tachycardia with cardiac arrest 2011 Left carotid stenosis Neuropathy Past Surgical History AICD placement Previous colonoscopy Allergies: Coded Allergies: No Known Allergies (Unverified , 02/26/18) Objective . Vital Signs Date Time Temp Pulse Resp B/P (MAP) Pulse Ox O2 Delivery O2 Flow Rate FiO2 02/28/18 08:18 97.7 80 20 141/81 (101) 93 02/28/18 04:00 97.8 80 16 120/62 (81) 100 02/28/18 00:00 98.1 76 16 118/58 (78) 95 02/28/18 00:00 98.1 76 18 118/58 (78) 95 02/27/18 20:00 98.3 60 16 135/63 (87) 100 02/27/18 16:00 98.6 72 18 146/81 (102) 97 . Laboratory Tests Test 02/26/18 20:47 02/28/18 07:47 White Blood Count 8.8 TH/MM3 5.4 TH/MM3 Red Blood Count 4.99 MIL/MM3 4.43 MIL/MM3 Hemoglobin 14.0 GM/DL 12.1 GM/DL Hematocrit 41.7 % 36.9 % Mean Corpuscular Volume 83.5 FL 83.3 FL Mean Corpuscular Hemoglobin 28.1 PG 27.4 PG Mean Corpuscular Hemoglobin Concent 33.6 % 32.8 % Red Cell Distribution Width 15.3 % 15.1 % Platelet Count 207 TH/MM3 165 TH/MM3 Mean Platelet Volume 9.0 FL 8.7 FL Neutrophils (%) (Auto) 73.0 % 66.2 % Lymphocytes (%) (Auto) 12.2 % 17.7 % Monocytes (%) (Auto) 9.9 % 11.1 % Eosinophils (%) (Auto) 4.1 % 4.0 % Basophils (%) (Auto) 0.8 % 1.0 % Neutrophils # (Auto) 6.4 TH/MM3 3.6 TH/MM3 Lymphocytes # (Auto) 1.1 TH/MM3 0.9 TH/MM3 Monocytes # (Auto) 0.9 TH/MM3 0.6 TH/MM3 Eosinophils # (Auto) 0.4 TH/MM3 0.2 TH/MM3 Basophils # (Auto) 0.1 TH/MM3 0.1 TH/MM3 CBC Comment DIFF FINAL DIFF FINAL Differential Comment Laboratory Tests Test 02/26/18 20:47 Blood Urea Nitrogen 21 MG/DL Creatinine 1.06 MG/DL Random Glucose 123 MG/DL Total Protein 7.4 GM/DL Albumin 3.6 GM/DL Calcium Level 8.8 MG/DL Alkaline Phosphatase 38 U/L Aspartate Amino Transf (AST/SGOT) 20 U/L Alanine Aminotransferase (ALT/SGPT) 18 U/L Total Bilirubin 1.1 MG/DL Sodium Level 143 MEQ/L Potassium Level 3.9 MEQ/L Chloride Level 108 MEQ/L Carbon Dioxide Level 25.5 MEQ/L Anion Gap 10 MEQ/L Estimat Glomerular Filtration Rate 68 ML/MIN Microbiology Date/Time Source Procedure Growth Status 02/27/18 16:40 Wound Leg Gram Stain - Final Resulted 02/27/18 16:40 Wound Leg Wound Culture Pending Resulted Physical Exam GENERAL: awake and alert, not in respiratory distress. SKIN: Warm and dry. No generalized rash, no ecchymoses and no evidence of embolic lesions. HEAD: Atraumatic. Normocephalic. No temporal wasting, or tenderness. EYES: [place] conjunctiva. No petechia or hemorrhage. Pupils equal, round and reactive to light. Extraocular movements full and intact. No scleral icterus. No injection or drainage. EARS, NOSE AND THROAT: Nose without bleeding or purulent nasal discharge. No sinus tenderness. Mucous membranes pink and moist. No oral lesions noted. No exudate. No oral thrush. NECK: Trachea midline. Supple and not tender, no meningeal signs CARDIOVASCULAR: Regular rate and rhythm. No murmurs, rubs or gallops heard RESPIRATORY: Clear to auscultation. Breath sounds equal bilaterally. No rales , wheezing or rhonchi ABDOMEN: Soft, non-tender, nondistended. Bowel sounds present and normoactive. No guarding. No rebound. No organomegaly. EXTREMITIES: No clubbing, cyanosis. His LLE is larger compared to his RLE. Edema slightly better in LLE. There is a wound in lateral aspect of his L leg , proximally that is curved, much improved and very little exudate. There is periwound erythema as well as ecchymosis which looks better. There is dependent erythema whole L leg - resolves when I elevate his LLE. No calf tenderness. Well perfused and warm. NEUROLOGICAL: Awake and alert. Cranial nerves grossly intact. Motor grossly within normal limits. PSYCHIATRIC: Normal affect, calm and cooperative. LINE: No evidence of infection Assessment & Plan Remarks IMPRESSION Ulcer L leg with cellulitis Cellulitis LLE Improving RECOMMENDATION Cipro and Clinda x 10 days Stop Vanco after today's dose Wound care Edema control - TRENT stockings and leg elevation If stable D/C home in AM with follow-up at wound care center Explained plan to patient Kayla Morales MD Feb 28, 2018 12:35
[2018-02-28] MEDS: VANCOMYCIN INJ 2,000 MG in SODIUM CHLORID 0.9% 500 ML INJ 500 ML IV SCH (14:58)
[2018-02-28] MEDS: CIPROFLOXACIN 750 MG TAB PO SCH (16:30)
[2018-02-28 16:42] VITALS: BP 118/66; PULSE 64; RESP 20; TEMP 97.9; O2SAT 95
[2018-02-28] MEDS: CLINDAMYCIN 150 MG CAP PO SCH (17:45)
[2018-02-28 20:00] VITALS: BP 121/59; PULSE 70; RESP 22; TEMP 98; O2SAT 97
[2018-02-28] MEDS: DULoxetine HCl DR 60 MG CAP PO SCH (22:03)
[2018-02-28] MEDS: ATORVASTATIN 80 MG TAB PO SCH (22:03)
[2018-02-28] MEDS: MELATONIN 5 MG TAB PO SCH (22:03)
[2018-03-01] VITALS: BP 110/53; PULSE 71; RESP 19; TEMP 98.1; O2SAT 95
[2018-03-01] MEDS: CIPROFLOXACIN 750 MG TAB PO SCH ×2 (01:29→13:15)
[2018-03-01] MEDS: CLINDAMYCIN 150 MG CAP PO SCH ×3 (01:29→11:27)
[2018-03-01 06:18] VITALS: BP 105/52; PULSE 67; RESP 21; TEMP 98.2; O2SAT 94
[2018-03-01 07:40] VITALS: BP 107/57; PULSE 69; RESP 20; TEMP 98; O2SAT 93
[2018-03-01] MEDS: metFORMIN HCL 850 MG TAB PO SCH (08:43)
[2018-03-01] MEDS: POTASSIUM CHLORIDE 10 MEQ CONTROLLED RELEASE TAB PO SCH (08:44)
[2018-03-01] MEDS: APIXABAN 5 MG TABLET PO SCH (08:44)
[2018-03-01] MEDS: CARVEDILOL 12.5 MG TAB PO SCH (08:44)
[2018-03-01] MEDS: PANTOPRAZOLE SOD 40 MG DELAYED RELEASE TAB PO SCH (08:44)
[2018-03-01] MEDS: FENOFIBRATE 145 MG TAB PO SCH (08:44)
[2018-03-01] MEDS: ASPIRIN 81 MG CHEW TAB CHEW SCH (08:44)
[2018-03-01] MEDS: FUROSEMIDE 40 MG TAB PO SCH (08:44)
[2018-03-01] MEDS: LOSARTAN 50 MG TAB PO SCH (08:44)
[2018-03-01] MEDS: SOTALOL HCL 80 MG TAB PO SCH (08:44)
[2018-03-01] MEDS: POLYETHYLENE GLYCOL 17 GM PKG PO SCH (08:45)
[2018-03-01] MEDS: TIOTROPIUM BROMIDE 18 MCG INH INH SCH (08:50)
[2018-03-01] MEDS: FLUTICASONE 100 MCG/VILANTEROL 25 MCG INHALER INH SCH (08:51)
[2018-03-01 11:39] VITALS: BP 128/69; PULSE 61; RESP 20; TEMP 97.8; O2SAT 95
--- NOTE | 2018-03-01 12:39 | HHI.PR ---
Subjective Remarks Patient remains afebrile. Minimal discomfort in left lower extremity. Taking p.o. well. Vital signs are stable. Ambulating in the room with cane. Current Medications Medications (Trade) Dose Ordered Sig/Kely Route Start Time Stop Time Status Last Admin (Eliquis) 5 mg BID PO 02/26/18 22:15 03/01/18 08:44 (Aspirin Chew) 81 mg DAILY CHEW 02/27/18 09:00 03/01/18 08:44 (Lipitor) 80 mg HS PO 02/26/18 22:15 02/28/18 22:03 (Coreg) 25 mg BID PO 02/26/18 22:15 03/01/18 08:44 (Breo Ellipta 100-25 Inh) 1 puff DAILY INH 02/27/18 09:00 03/01/18 08:51 (Lasix) 40 mg DAILY PO 02/27/18 09:00 03/01/18 08:44 (Melatonin) 10 mg HS PO 02/26/18 22:15 02/28/18 22:03 (Glucophage) 850 mg BIDPC PO 02/27/18 09:00 03/01/18 08:43 (Nitrostat Sl) 0.4 mg STAT PRN SL 02/26/18 22:15 (Protonix) 40 mg DAILY PO 02/27/18 09:00 03/01/18 08:44 (Miralax) 17 gm DAILY PO 02/27/18 09:00 02/28/18 08:52 (KCl) 10 meq DAILY PO 02/27/18 09:00 03/01/18 08:44 (Tricor) 145 mg DAILY PO 02/27/18 09:00 03/01/18 08:44 (Cozaar) 100 mg DAILY PO 02/27/18 09:00 02/28/18 08:50 (Betapace) 160 mg BID PO 02/26/18 22:15 03/01/18 08:44 (Cymbalta Dr) 60 mg HS PO 02/27/18 21:00 02/28/18 22:03 (Norvasc) 10 mg HS PO 02/27/18 21:00 02/28/18 22:02 (Spiriva Inh) 18 mcg DAILY INH 02/27/18 09:45 03/01/18 08:50 (Cipro) 750 mg Q12H PO 02/28/18 14:00 03/01/18 01:29 (Cleocin) 300 mg Q6HR PO 02/28/18 18:00 03/01/18 11:27 Objective Vital Signs Date Time Temp Pulse Resp B/P (MAP) Pulse Ox O2 Delivery O2 Flow Rate FiO2 03/01/18 11:39 97.8 61 20 128/69 (88) 95 03/01/18 07:40 98.0 69 20 107/57 (74) 93 03/01/18 06:18 98.2 67 21 105/52 (69) 94 03/01/18 00:00 98.1 71 19 110/53 (72) 95 02/28/18 20:00 98.0 70 22 121/59 (79) 97 02/28/18 16:42 97.9 64 20 118/66 (83) 95 I/O 02/28/18 02/28/18 02/28/18 03/01/18 03/01/18 03/01/18 07:00 15:00 23:00 07:00 15:00 23:00 Intake Total 480 ml Balance 480 ml Intake Oral 480 ml # Voids 3 1 1 # Bowel Movements 1 0 Left lower extremity reveals 1+ edema of the lower leg. There is erythema around the wound. Desquamation laterally has improved but is still present. Medially it has resolved. Decreased exudate in the wound. Wound is filling in. Dimensions remained unchanged. Result Diagram: 02/28/18 0747 02/26/182046 Other Results Wound culture: Pseudomonas aeruginosa Assessment and Plan Problem List: (1) Cellulitis of left lower limb ICD Codes: L03.116 - Cellulitis of left lower limb Status: Acute Plan: The patient was taken off of vancomycin and placed on ciprofloxacin and clindamycin. I have spoken with Dr. Tracey and she feels the patient is cleared for discharge. She recommended continue wound care and complete course of oral antibiotics. Patient agrees to home health wound care. (2) ASHD (arteriosclerotic heart disease) ICD Codes: I25.10 - Atherosclerotic heart disease of [place] coronary artery without angina pectoris Status: Chronic Plan: Patient continues with current medication. He is asymptomatic for any recurrent coronary ischemia (3) History of ventricular tachycardia ICD Codes: Z86.79 - Personal history of other diseases of the circulatory system Status: Chronic Plan: The patient has an AICD in place. No evidence of any recurrent ventricular tachycardia. (4) Atrial fibrillation ICD Codes: I48.91 - Unspecified atrial fibrillation Plan: Ventricular rate is well controlled. He continues to take Eliquis for prophylaxis against embolism. No bleeding complications from the Eliquis. (5) Type 2 diabetes mellitus ICD Codes: E11.9 - Type 2 diabetes mellitus without complications Status: Chronic Plan: Continue with Metformin. Patient has had good glycemic control. He does have peripheral neuropathy and ambulates with a cane. (6) Hyperlipidemia ICD Codes: E78.5 - Hyperlipidemia, unspecified Status: Chronic Plan: Continue with current medication. (7) COPD (chronic obstructive pulmonary disease) ICD Codes: J44.9 - Chronic obstructive pulmonary disease, unspecified Status: Chronic Plan: The patient continues with Breo ellipta. Respiratory status stable (8) Hypertension ICD Codes: I10 - Essential (primary) hypertension Status: Chronic Plan: Blood pressure under adequate control with current medications (9) Anxiety ICD Codes: F41.9 - Anxiety disorder, unspecified Status: Chronic Plan: The patient has been on duloxetine for several years with good control of his anxiety. Will follow. Discharge Planning Discharge home today with home health wound care. Problem Qualifiers (1) Atrial fibrillation: Qualified Codes: I48.2 - Chronic atrial fibrillation (2) Type 2 diabetes mellitus: Qualified Codes: E11.42 - Type 2 diabetes mellitus with diabetic polyneuropathy (3) Hyperlipidemia: Qualified Codes: E78.2 - Mixed hyperlipidemia (4) COPD (chronic obstructive pulmonary disease): Qualified Codes: J44.9 - Chronic obstructive pulmonary disease, unspecified (5) Hypertension: Qualified Codes: I10 - Essential (primary) hypertension Anthony Fenton MD Mar 01, 2018 12:39
[2018-03-01] MEDS ORDERED: CLIN150 PO (12:47)
[2018-03-01] MEDS ORDERED: CIPR750T2 PO (12:47)
--- NOTE | 2018-03-01 12:52 | HHI.DS ---
Discharge Summary Admission Date Feb 26, 2018 at 17:38 Discharge Date: Mar 01, 2018 Admitting Diagnosis Open wound with cellulitis left lower extremity (1) Cellulitis of left lower limb Diagnosis: Principal ICD Codes: L03.116 - Cellulitis of left lower limb Status: Acute (2) COPD (chronic obstructive pulmonary disease) Diagnosis: Secondary ICD Codes: J44.9 - Chronic obstructive pulmonary disease, unspecified Status: Chronic (3) ASHD (arteriosclerotic heart disease) Diagnosis: Secondary ICD Codes: I25.10 - Atherosclerotic heart disease of [place] coronary artery without angina pectoris Status: Chronic (4) Atrial fibrillation Diagnosis: Secondary ICD Codes: I48.91 - Unspecified atrial fibrillation (5) Anxiety Diagnosis: Secondary ICD Codes: F41.9 - Anxiety disorder, unspecified Status: Chronic (6) Hyperlipidemia Diagnosis: Secondary ICD Codes: E78.5 - Hyperlipidemia, unspecified Status: Chronic (7) Hypertension Diagnosis: Secondary ICD Codes: I10 - Essential (primary) hypertension Status: Chronic (8) Type 2 diabetes mellitus Diagnosis: Secondary ICD Codes: E11.9 - Type 2 diabetes mellitus without complications Status: Chronic (9) History of ventricular tachycardia Diagnosis: Secondary ICD Codes: Z86.79 - Personal history of other diseases of the circulatory system Status: Chronic Brief History This 78-year-old white male who had injured his left lower extremity on his walker. He had a open wound which he initially treated with just placing a light bandage over. He developed swelling and erythema of the left lower extremity. He did not seek medical attention. He went to see his configuration consultant who noticed the swelling and the open wound. He was then referred to the undersigned physician by the configuration consultant for further treatment. The patient was initiated on oral antibiotics in the form of doxycycline and wound care was initiated. The patient was referred to the [facility] wound care center, however, he could not see the wound care physician for 2 weeks. The patient continued on doxycycline and the wound dressings were changed every other day in the undersigned physician's office. Despite the treatment, the wound became progressively more exudative with increased erythema and increasing edema of the lower extremity. At that point, it was felt the patient required inpatient treatment of the wound with cellulitis with IV antibiotics CBC/BMP: 02/28/18 0747 02/26/182046 Significant Findings Laboratory Tests Test 02/26/18 20:47 02/28/18 07:47 Neutrophils (%) (Auto) 73.0 % (16.0-70.0) Monocytes (%) (Auto) 9.9 % (0.0-8.0) 11.1 % (0.0-8.0) Eosinophils (%) (Auto) 4.1 % (0.0-4.0) Blood Urea Nitrogen 21 MG/DL (7-18) Random Glucose 123 MG/DL (74-106) Alkaline Phosphatase 38 U/L (45-117) Total Bilirubin 1.1 MG/DL (0.2-1.0) Chloride Level 108 MEQ/L (98-107) Estimat Glomerular Filtration Rate 68 ML/MIN (>89) Red Blood Count 4.43 MIL/MM3 (4.50-5.90) Hemoglobin 12.1 GM/DL (13.0-17.0) Hematocrit 36.9 % (39.0-51.0) Lymphocytes # (Auto) 0.9 TH/MM3 (1.0-4.8) Hospital Course The patient was admitted to medical surgical bed. He was placed on IV vancomycin. Infectious disease was consulted. The wound was cultured. The patient continued on IV vancomycin with improvement of the wound. The wound was dressed daily with alginate and a sterile dressing. The wound culture ultimately revealed pseudomonas aeruginosa. The patient was changed to oral antibiotics in the form of ciprofloxacin and clindamycin. Infectious disease wallpaper consultant recommended 10 days of both. It was felt the patient had obtained maximum benefit from the hospitalization and was discharged home in good condition. Medications are listed on medication reconciliation sheet. The patient agreed to outpatient home health wound care and the patient would follow -up with the undersigned physician in 1 week. Pt Condition on Discharge: Good Discharge Disposition: Discharge Home Discharge Instructions DIET: Follow Instructions for: Heart Healthy Diet, Diabetic Diet Activities you can perform: Regular-No Restrictions Anthony Fenton MD Mar 01, 2018 12:52
--- NOTE | 2018-03-01 12:57 | HHI.FF ---
Face to Face Verification Diagnosis: (1) Cellulitis of left lower limb (2) COPD (chronic obstructive pulmonary disease) (3) ASHD (arteriosclerotic heart disease) (4) Atrial fibrillation (5) Anxiety (6) Hyperlipidemia (7) Hypertension (8) Type 2 diabetes mellitus (9) History of ventricular tachycardia Physical Therapy Order: Evaluate and Treat Home Health Nursing Order: Signs/symptoms of disease process Wound care and dressing changes Nursing assessment with vital signs Instructions: The left lower extremity wound is to be dressed with alginate and border gauze every other day beginning 03/02/18. Nursing to monitor patient's vital signs, fluid status, medication compliance. PT to evaluate and treat for unsteady gait and poor balance. I have seen patient Perico Husain on 03/01/18. My clinical findings support the need for the requested home health care services because: Ltd mobility - disease progression Med compliance is questionable Infection w/ risk of complications I certify that my clinical findings support that this patient is homebound because: Unsteady gait/balance Unable to use public transportation Anthony Fenton MD Mar 01, 2018 12:57
[2018-03-02] MEDS ORDERED: PHARMACY ORDERED LAB ONE (14:45)
== END 2018-03-01 15:41 | disposition home health service (06) | DRG 603 ==
LOC: N05A 17:38
PROVIDERS: ADMIT Family Medicine; ATTEND Family Medicine
DX: L03.116 Cellulitis of left lower limb (principal); I42.9 Cardiomyopathy, unspecified; E11.42 Type 2 diabetes mellitus with diabetic polyneuropathy; S81.802A Unspecified open wound, left lower leg, initial encounter; Z86.74 Personal history of sudden cardiac arrest; I48.2 Chronic atrial fibrillation; M85.80 Other specified disorders of bone density and structure, unspecified site; I25.10 Atherosclerotic heart disease of native coronary artery without angina pectoris; K57.90 Diverticulosis of intestine, part unspecified, without perforation or abscess without bleeding; K21.9 Gastro-esophageal reflux disease without esophagitis; J44.9 Chronic obstructive pulmonary disease, unspecified; E78.2 Mixed hyperlipidemia; F41.9 Anxiety disorder, unspecified; I10 Essential (primary) hypertension; W19.XXXA Unspecified fall, initial encounter; Z96.1 Presence of intraocular lens; Z86.79 Personal history of other diseases of the circulatory system; Z95.5 Presence of coronary angioplasty implant and graft; Z86.010 Personal history of colon polyps; Z87.891 Personal history of nicotine dependence; Z98.42 Cataract extraction status, left eye; Z98.41 Cataract extraction status, right eye; Z95.810 Presence of automatic (implantable) cardiac defibrillator
CPT/HCPCS: 80053; 82948; 85025; 87070; 87077; 87186; 87205; J3370; J7040; J7050